=== PATIENT | female | born 1985 | race Caucasian/White ===

== ENCOUNTER 2017-01-27 14:47 | Emergency (ER) | payer OTHER | END 2017-01-27 15:12 | disposition home or self-care (01) | DX: L30.9 Dermatitis, unspecified (principal); E03.9 Hypothyroidism, unspecified ==

== ENCOUNTER 2017-04-13 08:54 | Emergency (ER) | payer OTHER ==
--- NOTE | 2017-04-13 09:57 | ED Physician Documentation ---
History of Present Illness - Stated complaint Stated Complaint: CONSTIPATION/DIZZY - Chief complaint Chief Complaint: Abd Pain - History obtained from History obtained from: Patient - History of Present Illness Timing: How many weeks ago (4) - Additonal information Additional information: 31 y/o female with thyroid disease has developed mucousy diarrhea about one month ago and subsequently has developed some constipation. Her last normal BM was about 5 days ago and she has some nausea today. She relates that she feels her initial episode of diarrhea was stress related and she has had this happen to her once before when she was buying a house with her . Her stress this time is her coming home from deployment and she is fearful she will not be attractive to him as she has not lost all of her weight from her most recent . She does acknowledge that this is a body image issue as she is not overweight. She has had some trouble sleeping. She has not taken medication previously for anxiety Review of Systems Constitutional: denies: Fever Eyes: denies: Decreased vision Ears: denies: Ear pain Nose: denies: Congestion Throat: denies: Sore throat Cardiac: denies: Chest pain / pressure Respiratory: denies: Dyspnea, Cough GI: reports: Abdominal Pain, Nausea, Constipation. 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 - Past Surgical History Past Surgical History: No - Present Medications Home Medications: Ambulatory Orders Medication Instructions Recorded Confirmed Levothyroxine Sodium 125 mcg PO DAILY 05/03/14 04/13/17 Lorazepam [Ativan] 1 mg PO Q8HR PRN #15 tablet 04/13/17 Polyethylene Glycol 3350 [Miralax] 17 gm PO DAILY 04/13/17 04/13/17 - Allergies Allergies/Adverse Reactions: Allergies Allergy/AdvReac Type Severity Reaction Status Date / Time cefaclor [From Ceclor] AdvReac Intermediate Rash Verified 11/14/16 11:20 Penicillins AdvReac Intermediate Rash Verified 11/14/16 11:20 - Social History Does the pt smoke?: No Smoking Status: Never smoker Does the pt drink ETOH?: No Does the pt have substance abuse?: No - Immunizations Immunizations are current?: Yes - POLST Patient has POLST: No PD ED PE NORMAL - Vitals Vital signs reviewed: Yes (normal ) - General General: Alert and oriented X 3, No acute distress, Well developed/nourished - HEENT HEENT: Atraumatic, PERRL, EOMI - Neck Neck: Supple, no meningeal sign - Cardiac Cardiac: RRR, No murmur - Respiratory Respiratory: No respiratory distress, Clear bilaterally - Abdomen Abdomen: Soft, Non tender - Back Back: No CVA TTP, No spinal TTP - Derm Derm: Normal color, No rash - Extremities Extremities: No deformity, No edema - Neuro Neuro: No motor deficit, No sensory deficit - Psych Psych: Normal mood, Normal affect Results - Vitals Vitals: Vital Signs - 24 hr 04/13/17 08:58 Temperature 36.0 C L Heart Rate 66 Respiratory 15 Rate Blood Pressure 121/78 O2 Saturation 100 Oxygen O2 Source Room air - Labs Labs: Laboratory Tests 04/13/17 04/13/17 04/13/17 10:16 10:16 10:16 WBC 6.5 RBC 4.52 Hgb 14.3 Hct 40.4 MCV 89.4 MCH 31.7 H MCHC 35.5 RDW 11.6 L Plt Count 216 MPV 7.7 L Neut # 5.0 Lymph # 1.2 L [place] # 0.3 Eos # 0.0 Baso # 0.0 Absolute Nucleated RBC 0.00 Nucleated RBCs 0.0 Sodium 138 Potassium 4.5 Chloride 105 Carbon Dioxide 27 Anion Gap 6.0 BUN 14 Creatinine 0.6 Estimated GFR (MDRD) 117 Glucose 105 H Calcium 9.3 Total Bilirubin 1.5 H AST 25 ALT 23 Alkaline Phosphatase 44 Total Protein 8.1 Albumin 5.0 Globulin 3.1 Albumin/Globulin Ratio 1.6 Lipase 27 Urine Color YELLOW Urine Clarity CLEAR Urine pH 5.5 Ur Specific [place] <=1.005 Urine Protein NEGATIVE Urine Glucose (UA) NEGATIVE Urine Ketones NEGATIVE Urine Occult Blood NEGATIVE Urine Nitrite NEGATIVE Urine Bilirubin NEGATIVE Urine Urobilinogen 0.2 (NORMAL) Ur Leukocyte Esterase NEGATIVE Ur Microscopic Review NOT INDICATED Urine Culture Comments NOT INDICATED Urine HCG, Qual NEGATIVE Procedures - IVC sono (time) 0950 Bedside IVC sono: IVC measures (cm) (1.72), Euvolemia PD MEDICAL DECISION MAKING - ED course Complexity details: reviewed results, re-evaluated patient, considered differential, d/w patient ED course: 31 y/o female with constipation after a bout of mucousy diarrhea has some stress and anxiety. She has no family history of IBD. Departure - Departure Disposition: 01 Home, Self Care Clinical Impression: Stress reaction Constipation Qualifiers: Constipation type: slow transit constipation Qualified Code(s): K59.01 - Slow transit constipation Condition: Stable Instructions: ED Stress React, ED Constipation Follow-Up: Mike Castañeda MD [Primary Care Provider] - Prescriptions: Lorazepam [Ativan] 1 mg PO Q8HR PRN #15 tablet PRN Reason: Anxiety
[2017-04-13 10:23] LABS: BASOPHILS % (AUTO) 0.4 %; EOSINOPHILS % (AUTO) 0.5 %; HCT - HEMATOCRIT 40.4 % (37.0-47.0); HGB - HEMOGLOBIN 14.3 g/dL (12.0-16.0); LYMPHOCYTES # (AUTO) 1.2 10^3/uL (1.5-3.5); LYMPHOCYTES % (AUTO) 18.1 %; MEAN CORPUSCULAR HEMOGLOBIN 31.7 pg (27.0-31.0); MEAN CORPUSCULAR HGB CONC 35.5 g/dL (32.0-36.0); MEAN CORPUSCULAR VOLUME 89.4 fL (81.0-99.0); MEAN PLATELET VOLUME 7.7 fL (7.9-10.8); MONOCYTES # (AUTO) 0.3 10^3/uL (0.0-1.0); MONOCYTES % (AUTO) 4.8 %; NEUTROPHILS % (AUTO) 76.2 %; RED BLOOD COUNT 4.52 10^6/uL (4.20-5.40); RED CELL DISTRIBUTION WIDTH 11.6 % (12.0-15.0); UNCORRECTED WHITE BLOOD COUNT 6.5 x10^3/uL; WHITE BLOOD COUNT 6.5 x10^3/uL (4.8-10.8)
[2017-04-13 10:26] LABS: BILIRUBIN,URINE NEGATIVE (NEGATIVE); PH,URINE 5.5 PH (5.0-7.5)
[2017-04-13 10:29] LABS: HCG UR QUAL NEGATIVE; UA CHARGE (STRIP ONLY) YES; UR CULTURE IF IND NOT INDICATED
[2017-04-13 10:41] LABS: ALBUMIN/GLOBULIN RATIO 1.6 (1.0-2.2); BILIRUBIN,TOTAL 1.5 mg/dL (0.2-1.0); CALCIUM 9.3 mg/dL (8.5-10.3); CREATININE 0.6 mg/dL (0.4-1.0); POTASSIUM 4.5 mmol/L (3.5-5.0); TOTAL PROTEIN 8.1 g/dL (6.7-8.2)
[2017-04-13 11:01] VITALS: BP 108/61
== END 2017-04-13 11:01 | disposition home or self-care (01) ==
LOC: ED 08:54
DX: F43.9 Reaction to severe stress, unspecified (principal); K59.01 Slow transit constipation; E03.9 Hypothyroidism, unspecified
CPT/HCPCS: 36415; 80053; 81001; 81003; 81025; 83690; 85025; 87086; 99283

== ENCOUNTER 2017-06-10 16:44 | Emergency (ER) | payer OTHER ==
[2017-06-10 16:57] VITALS: BP 120/81
[2017-06-10 17:56] LABS: RAPID STREP SCREEN REAGENT QC YELLOW (YELLOW)
[2017-06-10] MEDS ORDERED: ERYTHROMYCIN OPHTH OINT 1 GM TUBE RIGHTEYE STA (18:01)
[2017-06-10] MEDS ORDERED: LORATADINE 10 MG TABLET ONE (18:03)
--- NOTE | 2017-06-10 18:04 | ED Physician Documentation ---
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 Other Past Medical History: strep throat many times - Past Surgical History Past Surgical History: No - Present Medications Home Medications: Ambulatory Orders Medication Instructions Recorded Confirmed Levothyroxine Sodium 125 mcg PO DAILY 05/03/14 06/10/17 - Allergies Allergies/Adverse Reactions: Allergies Allergy/AdvReac Type Severity Reaction Status Date / Time cefaclor [[facility] AdvReac Intermediate Rash Verified 11/14/16 11:20 Penicillins AdvReac Intermediate Rash Verified 11/14/16 11:20 - Social History Does the pt smoke?: No Smoking Status: Never smoker Does the pt drink ETOH?: No Does the pt have substance abuse?: No - Immunizations Immunizations are current?: Yes - POLST Patient has POLST: No PD ED PE NORMAL - Vitals Vital signs reviewed: Yes - HEENT HEENT: Other (R eye mild injection no FB, pharynx with erythema no exudate) - Cardiac Cardiac: RRR - Respiratory Respiratory: No respiratory distress, Clear bilaterally - Abdomen Abdomen: Non tender - Derm Derm: Normal color - Neuro Neuro: Alert and oriented X 3 Results - Vitals Vitals: Vital Signs - 24 hr 06/10/17 16:54 Temperature 36.8 C Heart Rate 86 Respiratory 18 Rate Blood Pressure 120/81 H O2 Saturation 100 Oxygen O2 Source Room air - Labs Labs: Laboratory Tests 06/10/17 17:10 Group A Strep Rapid Negative Departure - Departure Disposition: 01 Home, Self Care Condition: Good Instructions: ED Pharyngitis Viral, ED Conjunctivitis Nonspecific Follow-Up: Mike Castañeda MD [Primary Care Provider] - Comments: The rapid strep test was negative A formal throat culture will also be run and we will call you if it is positive and you need antibiotics For your eye I have prescribed ointment to be applied 4 X a day for a week Forms: Activity restrictions
[2017-06-10] MEDS ORDERED: ERYTHROMYCIN OPHTH OINT 1 GM TUBE ONE (18:06)
== END 2017-06-10 18:09 | disposition home or self-care (01) ==
LOC: ED 16:44
DX: J02.8 Acute pharyngitis due to other specified organisms (principal); B97.89 Other viral agents as the cause of diseases classified elsewhere; H10.9 Unspecified conjunctivitis
CPT/HCPCS: 87070; 87430; 99283; A9270; J3490

== ENCOUNTER 2017-11-30 17:13 | Emergency (ER) | payer OTHER ==
[2017-11-30 17:33] VITALS: BP 111/72
[2017-11-30 18:12] LABS: BILIRUBIN,URINE NEGATIVE (NEGATIVE); GLUCOSE, URINE (UA) NEGATIVE (NEGATIVE); KETONES,URINE (UA) NEGATIVE (NEGATIVE); LEUKOCYTE ESTERASE, URINE NEGATIVE (NEGATIVE); NITRITE,URINE NEGATIVE (NEGATIVE); OCCULT BLOOD,URINE NEGATIVE (NEGATIVE); PH,URINE 6.5 PH (5.0-7.5); PROTEIN,URINE NEGATIVE (NEGATIVE); UROBILINOGEN,URINE 0.2 (NORMAL) E.U./dL (NORMAL)
[2017-11-30 18:17] LABS: CLARITY,URINE CLEAR (CLEAR); HCG UR QUAL NEGATIVE
[2017-11-30] MEDS ORDERED: PHENAZOPYRIDINE 100 MG TABLET PO STA (18:27)
--- NOTE | 2017-11-30 18:44 | ED Physician Documentation ---
History of Present Illness - Stated complaint Stated Complaint: FEMALE - Chief complaint Chief Complaint: General - Additonal information Additional information: hx from pt 32f several days of urinary freq and now L low back pain concerned for kidney infection no fever no NVD no abd pain denies preg no vag bleed no vag dc denies concern for STDs Review of Systems Constitutional: denies: Fever, Chills Cardiac: denies: Chest pain / pressure Respiratory: denies: Dyspnea GI: denies: Abdominal Pain, Nausea, Vomiting, Diarrhea : reports: Frequency. 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 Psych: Anxiety - Past Surgical History Past Surgical History: No - Present Medications Home Medications: Ambulatory Orders Medication Instructions Recorded Confirmed Levothyroxine Sodium 150 mcg PO DAILY 05/03/14 11/30/17 - Allergies Allergies/Adverse Reactions: Allergies Allergy/AdvReac Type Severity Reaction Status Date / Time cefaclor [From Ceclor] AdvReac Intermediate Rash Verified 11/30/17 17:33 Penicillins AdvReac Intermediate Rash Verified 11/30/17 17:33 - Social History Does the pt smoke?: No Smoking Status: Never smoker Does the pt drink ETOH?: No Does the pt have substance abuse?: No - Immunizations Immunizations are current?: Yes - POLST Patient has POLST: No PD ED PE NORMAL - Vitals Vital signs reviewed: Yes - Neck Neck: Supple, no meningeal sign - Cardiac Cardiac: RRR - Respiratory Respiratory: No respiratory distress, Clear bilaterally - Abdomen Abdomen: Soft, Non tender - Back Back: No CVA TTP - Derm Derm: Normal color Results - Vitals Vitals: Vital Signs - 24 hr 11/30/17 17:28 Temperature 36.3 C L Heart Rate 73 Respiratory 18 Rate Blood Pressure 111/72 O2 Saturation 98 Oxygen O2 Source Room air - Labs Labs: Laboratory Tests 11/30/17 17:45 Urine Color YELLOW Urine Clarity CLEAR Urine pH 6.5 Ur Specific [place] 1.010 Urine Protein NEGATIVE Urine Glucose (UA) NEGATIVE Urine Ketones NEGATIVE Urine Occult Blood NEGATIVE Urine Nitrite NEGATIVE Urine Bilirubin NEGATIVE Urine Urobilinogen 0.2 (NORMAL) Ur Leukocyte Esterase NEGATIVE Ur Microscopic Review NOT INDICATED Urine Culture Comments NOT INDICATED Urine HCG, Qual NEGATIVE PD MEDICAL DECISION MAKING - ED course ED course: clean urine hcg neg added on GC and chlamydia though by pt report low risk and no vag dc etc Departure - Departure Disposition: 01 Home, Self Care Clinical Impression: Dysuria Condition: Good Instructions: ED Dysuria Uncertain Cause Follow-Up: IDALMIS RAM MD [Primary Care Provider] - Comments: The initial urine test was fine - no infection Cultures are being run and will be resulted in a few days - the ER staff will call you if antibiotics are needed For now I have prescribed a medication called pyridium to ease the urinary symptoms and you can take tylenol or motrin for the flank pain. Please follow up with your PMD for a recheck if not better in a few days Please return to the ER if worse
== END 2017-11-30 18:50 | disposition home or self-care (01) ==
LOC: ED 17:13
DX: R30.0 Dysuria (principal); E03.9 Hypothyroidism, unspecified
CPT/HCPCS: 81003; 81025; 87491; 87591; 99283; A9270; 81001; 87086

== ENCOUNTER 2018-01-25 10:54 | Emergency (ER) | payer OTHER ==
[2018-01-25 11:14] VITALS: BP 109/55
--- NOTE | 2018-01-25 12:45 | ED Physician Documentation ---
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 Psych: Anxiety - Past Surgical History Past Surgical History: No - Present Medications Home Medications: Ambulatory Orders Medication Instructions Recorded Confirmed Levothyroxine Sodium 135 mcg PO DAILY 05/03/14 01/25/18 - Allergies Allergies/Adverse Reactions: Allergies Allergy/AdvReac Type Severity Reaction Status Date / Time cefaclor [From Ceclor] AdvReac Intermediate Rash Verified 01/25/18 11:14 Penicillins AdvReac Intermediate Rash Verified 01/25/18 11:14 - Social History Does the pt smoke?: No Smoking Status: Never smoker Does the pt drink ETOH?: No Does the pt have substance abuse?: No - Immunizations Immunizations are current?: Yes - POLST Patient has POLST: No Results - Vitals Vitals: Oxygen O2 Source Room air Departure - Departure Disposition: ED Left Without Being Seen Discharge Date/Time: 01/25/18 12:51
== END 2018-01-25 12:51 | disposition left against medical advice (07) ==
LOC: ED 10:54
DX: Z53.21 Procedure and treatment not carried out due to patient leaving prior to being seen by health care provider (principal)

== ENCOUNTER 2018-04-04 08:07 | Emergency (ER) | payer OTHER ==
[2018-04-04 08:18] VITALS: BP 113/75
--- NOTE | 2018-04-04 08:33 | ED Physician Documentation ---
PD HPI BACK PAIN - Stated complaint Stated Complaint: BACK PX - Chief complaint Chief Complaint: Back Pain - History obtained from History obtained from: Patient - History of Present Illness Timing - onset: Chronic Timing - duration: Years Timing - details: Gradual onset, Waxing and waning Pain level max: 8 Pain level now: 4 Location: Lower, Right, Left Quality: Pain, Spasm, Similar to prior episodes Associated symptoms: No: Fever, Weakness, Numbness, Incontinent of urine, Unable to urinate, Hematuria, Incontinent of stool Improves with: Rest Worsened by: Movement Similar symptoms before: Diagnosis (chronic low back pain) - Additional information Additional information: Patient is a 32-year-old female who has a history of chronic low back pain. Currently seeing physical therapy and a chiropractor. States last night she had increased spasming in her back. Took Motrin without relief. Is concerned that the spasming may begin again tonight. Is still having some pain in her back today. No fevers. No IV drug use. No recurrent injury. Denies any possibility of . States she is not breast-feeding either. 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 Psych: Anxiety - Past Surgical History Past Surgical History: No - Present Medications Home Medications: Ambulatory Orders Medication Instructions Recorded Confirmed Levothyroxine Sodium 135 mcg PO DAILY 05/03/14 01/25/18 Cyclobenzaprine [Flexeril] 10 mg PO TID PRN #20 tablet 04/04/18 Hydrocodone/Acetaminophen 1 - 2 each PO Q6H PRN #14 tablet 04/04/18 [Hydrocodon-Acetaminophen 5-325] - Allergies Allergies/Adverse Reactions: Allergies Allergy/AdvReac Type Severity Reaction Status Date / Time cefaclor [From Ceclor] AdvReac Intermediate Rash Verified 01/25/18 11:14 Penicillins AdvReac Intermediate Rash Verified 01/25/18 11:14 - Social History Does the pt smoke?: No Smoking Status: Never smoker Does the pt drink ETOH?: No Does the pt have substance abuse?: No - Immunizations Immunizations are current?: Yes - POLST Patient has POLST: No PD ED PE NORMAL - Vitals Vital signs reviewed: Yes - General General: Alert and oriented X 3, No acute distress - HEENT HEENT: Moist mucous membranes - Neck Neck: Supple, no meningeal sign, No bony TTP - Cardiac Cardiac: RRR - Respiratory Respiratory: No respiratory distress, Clear bilaterally - Back Back: No spinal TTP, Other (Mild low lumbar paraspinal muscle spasm. No midline tenderness to palpation or percussion) - Derm Derm: Warm and dry, No rash - Extremities Extremities: Other (normal bilateral lower extremity patellar and ankle jerk reflexes. Normal great toe extension bilaterally) - Neuro Neuro: Alert and oriented X 3, No motor deficit, No sensory deficit Results - Vitals Vitals: Vital Signs - 24 hr 04/04/18 08:13 Temperature 36.7 C Heart Rate 72 Respiratory 18 Rate Blood Pressure 113/75 O2 Saturation 100 Oxygen O2 Source Room air PD MEDICAL DECISION MAKING - ED course Complexity details: considered differential (no cauda equina, no spinal epidural abscess, no fracture, no aortic dissection or evidence of aneursym rupture), d/w patient ED course: Patient is a 32-year-old female who presents to the emergency department with acute on chronic low back pain. We will trial her on a small amount of pain medication and muscle relaxants for home. She is driving home, therefore will not give her any altering medications in the emergency department. She will fill her prescription and follow-up closely with her doctor. No evidence of cauda equina, epidural abscess. Normal gait. Patient counseled regarding signs and symptoms for which I believe and urgent re-evaluation would be necessary. Patient with good understanding of and agreement to plan and is comfortable going home at this time This document was made in part using voice recognition software. While efforts are made to proofread this document, sound alike and grammatical errors may occur. Departure - Departure Disposition: 01 Home, Self Care Clinical Impression: Low back pain Qualifiers: Chronicity: chronic Back pain laterality: bilateral Sciatica presence: without sciatica Qualified Code(s): M54.5 - Low back pain Condition: Good Instructions: ED Spasm Back No Trauma, ED Neck Back Pain General Follow-Up: IDALMIS RAM MD [Primary Care Provider] - Within 1 week Prescriptions: Cyclobenzaprine [Flexeril] 10 mg PO TID PRN #20 tablet PRN Reason: Spasms Hydrocodone/Acetaminophen [Hydrocodon-Acetaminophen 5-325] 1 - 2 each PO Q6H PRN #14 tablet PRN Reason: pain Comments: Return if you worsen. Do not drive or operate heavy machinery while taking the Vicodin or Flexeril. Do not drink alcohol or drive while on narcotic pain medicine. Note that many narcotic pain relievers also contain tylenol/acetaminophen. Please ensure that your total dose of acetaminophen from all sources does not exceed 3 grams (3000mg) per day. You may constipated on this medication, take a stool softener such as "Colace" twice a day while you are on it. Also recommend a deoc-tad-fzotzav laxative such as senna or MiraLAX any day that you do not have a bowel movement. If you received narcotic pain medication in the emergency department, do not drive or operate machinery for the next 24 hours. Discharge Date/Time: 04/04/18 08:43
== END 2018-04-04 08:43 | disposition home or self-care (01) ==
LOC: ED 08:07
DX: M54.5 Low back pain (principal); G89.29 Other chronic pain; E03.9 Hypothyroidism, unspecified
CPT/HCPCS: 99283

== ENCOUNTER 2018-05-01 09:51 | Emergency (ER) | payer OTHER ==
[2018-05-01] MEDS ORDERED: LIDOCAINE TOPICAL 4% 50 ML BOTTLE MM STA (11:29)
--- NOTE | 2018-05-01 11:30 | ED Physician Documentation ---
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: No Smoking Status: Never smoker Does the pt drink ETOH?: No Does the pt have substance abuse?: No - Immunizations Immunizations are current?: Yes - POLST Patient has POLST: No PD ED PE NORMAL - Vitals Vital signs reviewed: Yes - HEENT HEENT: Other (mikayla TMs tautly retracted, prior perfs appear healed, no erythema or purulence) - Cardiac Cardiac: RRR - Respiratory Respiratory: No respiratory distress, Clear bilaterally Results - Vitals Vitals: Vital Signs - 24 hr 05/01/18 09:55 Temperature 36.5 C Heart Rate 74 Respiratory 16 Rate Blood Pressure 112/59 L O2 Saturation 100 Oxygen O2 Source Room air PD MEDICAL DECISION MAKING - ED course ED course: atrovent nasal spray cat B so used that rather than afrin or flonase - Sepsis Event Vital Signs: Vital Signs - 24 hr 05/01/18 09:55 Temperature 36.5 C Heart Rate 74 Respiratory 16 Rate Blood Pressure 112/59 L O2 Saturation 100 Oxygen O2 Source Room air Departure - Departure Disposition: 01 Home, Self Care Clinical Impression: Eustachian tube disorder Qualifiers: Laterality: left Qualified Code(s): H69.92 - Unspecified Eustachian tube disorder, left ear Condition: Good Instructions: ED Otitis Media Serous Adult Follow-Up: IDALMIS RAM MD [Primary Care Provider] - Prescriptions: Ipratropium [place] 2 sprays NS TID PRN #1 bottle PRN Reason: ear pain
[2018-05-01 11:44] VITALS: BP 91/49
== END 2018-05-01 11:47 | disposition home or self-care (01) ==
LOC: ED 09:51
DX: H69.92 Unspecified Eustachian tube disorder, left ear (principal); E03.9 Hypothyroidism, unspecified
CPT/HCPCS: 99283

== ENCOUNTER 2018-05-29 14:11 | Emergency (ER) | payer OTHER ==
[2018-05-29 14:21] VITALS: BP 109/59
[2018-05-29 14:57] LABS: BILIRUBIN,URINE NEGATIVE (NEGATIVE); GLUCOSE, URINE (UA) NEGATIVE (NEGATIVE); KETONES,URINE (UA) NEGATIVE (NEGATIVE); LEUKOCYTE ESTERASE, URINE NEGATIVE (NEGATIVE); NITRITE,URINE NEGATIVE (NEGATIVE); OCCULT BLOOD,URINE NEGATIVE (NEGATIVE); PH,URINE 6.5 PH (5.0-7.5); PROTEIN,URINE NEGATIVE (NEGATIVE); UROBILINOGEN,URINE 0.2 (NORMAL) E.U./dL (NORMAL)
[2018-05-29 14:59] LABS: CLARITY,URINE CLEAR (CLEAR); HCG UR QUAL POSITIVE
--- NOTE | 2018-05-29 15:15 | ED Physician Documentation ---
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 Psych: Anxiety - Past Surgical History Past Surgical History: No - Present Medications Home Medications: Ambulatory Orders Medication Instructions Recorded Confirmed Levothyroxine Sodium 135 mcg PO DAILY 05/03/14 05/01/18 Ipratropium [place] 2 sprays NS TID PRN #1 bottle 05/01/18 - Allergies Allergies/Adverse Reactions: Allergies Allergy/AdvReac Type Severity Reaction Status Date / Time cefaclor [[facility] AdvReac Intermediate Rash Verified 05/01/18 10:13 Penicillins AdvReac Intermediate Rash Verified 05/01/18 10:13 - Social History Does the pt smoke?: No Smoking Status: Never smoker Does the pt drink ETOH?: No Does the pt have substance abuse?: No - Immunizations Immunizations are current?: Yes - POLST Patient has POLST: No Results - Vitals Vitals: Vital Signs - 24 hr 05/29/18 14:15 Temperature 36.6 C Heart Rate 69 Respiratory 16 Rate Blood Pressure 109/59 L O2 Saturation 100 Oxygen O2 Source Room air - Labs Labs: Laboratory Tests 05/29/18 05/29/18 14:30 14:30 Urine Color YELLOW Urine Clarity CLEAR Urine pH 6.5 Ur Specific [place] 1.020 1.020 Urine Protein NEGATIVE Urine Glucose (UA) NEGATIVE Urine Ketones NEGATIVE Urine Occult Blood NEGATIVE Urine Nitrite NEGATIVE Urine Bilirubin NEGATIVE Urine Urobilinogen 0.2 (NORMAL) Ur Leukocyte Esterase NEGATIVE Ur Microscopic Review NOT INDICATED Urine Culture Comments NOT INDICATED Urine HCG, Qual POSITIVE PD MEDICAL DECISION MAKING - Sepsis Event Vital Signs: Vital Signs - 24 hr 05/29/18 14:15 Temperature 36.6 C Heart Rate 69 Respiratory 16 Rate Blood Pressure 109/59 L O2 Saturation 100 Oxygen O2 Source Room air
--- NOTE | 2018-05-29 15:26 | ED Physician Documentation ---
PD HPI FEMALE - Stated complaint Stated Complaint: FEMALE /15 WKS PREG - Chief complaint Chief Complaint: UTI - History obtained from History obtained from: Patient - History of Present Illness Timing - onset: Other ( at 15 weeks has been having significant urinary frequency more than her prior pregnancies, and over the last 3 days has had constant burning pelvic pain unrelated to urination. There is no cramping or bleeding or discharge.) Review of Systems Constitutional: denies: Fever, Chills GI: denies: Abdominal Pain : reports: Dysuria, Frequency. 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 Psych: Anxiety - Past Surgical History Past Surgical History: No - Present Medications Home Medications: Ambulatory Orders Medication Instructions Recorded Confirmed Levothyroxine Sodium 135 mcg PO DAILY 05/03/14 05/01/18 Ipratropium [place] 2 sprays NS TID PRN #1 bottle 05/01/18 - Allergies Allergies/Adverse Reactions: Allergies Allergy/AdvReac Type Severity Reaction Status Date / Time cefaclor [From [facility]] AdvReac Intermediate Rash Verified 05/01/18 10:13 Penicillins AdvReac Intermediate Rash Verified 05/01/18 10:13 - Social History Does the pt smoke?: No Smoking Status: Never smoker Does the pt drink ETOH?: No Does the pt have substance abuse?: No - Immunizations Immunizations are current?: Yes - POLST Patient has POLST: No PD ED PE NORMAL - Vitals Vital signs reviewed: Yes - General General: Alert and oriented X 3, No acute distress - Abdomen Abdomen: Normal bowel sounds, Soft, Non tender - Female Female : Other (Bedside ultrasound demonstrates single live intrauterine with a heart rate 133 and no free fluid. Bladder is not distended.) - Extremities Extremities: No edema, No calf tenderness / cord - Neuro Neuro: Alert and oriented X 3, Normal speech Results - Vitals Vitals: Vital Signs - 24 hr 05/29/18 14:15 Temperature 36.6 C Heart Rate 69 Respiratory 16 Rate Blood Pressure 109/59 L O2 Saturation 100 Oxygen O2 Source Room air - Labs Labs: Laboratory Tests 05/29/18 05/29/18 14:30 14:30 Urine Color YELLOW Urine Clarity CLEAR Urine pH 6.5 Ur Specific [place] 1.020 1.020 Urine Protein NEGATIVE Urine Glucose (UA) NEGATIVE Urine Ketones NEGATIVE Urine Occult Blood NEGATIVE Urine Nitrite NEGATIVE Urine Bilirubin NEGATIVE Urine Urobilinogen 0.2 (NORMAL) Ur Leukocyte Esterase NEGATIVE Ur Microscopic Review NOT INDICATED Urine Culture Comments NOT INDICATED Urine HCG, Qual POSITIVE PD MEDICAL DECISION MAKING - ED course ED course: 32-year-old woman presents with urinary frequency and pelvic burning, she has benign examination and normal urine - Sepsis Event Vital Signs: Vital Signs - 24 hr 05/29/18 14:15 Temperature 36.6 C Heart Rate 69 Respiratory 16 Rate Blood Pressure 109/59 L O2 Saturation 100 Oxygen O2 Source Room air Departure - Departure Disposition: Home, Self Care Clinical Impression: Urinary frequency Qualifiers: Weeks of gestation: 15 weeks Qualified Code(s): Z3A.15 - 15 weeks gestation of Condition: Good Record reviewed to determine appropriate education?: Yes Instructions: ED Preg Established Normal Sxs Comments: Call your doctor to arrange a follow-up appointment, make the next available appointment. In the interim, return anytime if worse or if new symptoms develop. Discharge Date/Time: 05/29/18 15:46
== END 2018-05-29 15:46 | disposition home or self-care (01) ==
LOC: ED 14:11
DX: O99.89 Other specified diseases and conditions complicating pregnancy, childbirth and the puerperium (principal); R35.0 Frequency of micturition; R30.0 Dysuria; R10.2 Pelvic and perineal pain; Z3A.15 15 weeks gestation of pregnancy
CPT/HCPCS: 81001; 81003; 81025; 87086; 99282; 99283

== ENCOUNTER 2018-09-19 06:46 | Emergency (ER) | payer OTHER ==
[2018-09-19 06:51] VITALS: BP 113/70
--- NOTE | 2018-09-19 07:34 | ED Physician Documentation ---
PD HPI HEENT - Stated complaint Stated Complaint: SINUS PRESSURE - Chief complaint Chief Complaint: Heent - History obtained from History obtained from: Patient - History of Present Illness Timing - onset: Other (10 day s ago) Timing - duration: Days (10 days) Timing - details: Gradual onset, Still present Severity Comments: moderate Location: Sinuses Improves: Nothing Worsens: No: Swalllowing, Noise, Position Associated symptoms: Congestion, Facial swelling, Headache. No: Unable to swallow Similar symptoms before: No diagnosis Recently seen: Not recently seen Review of Systems Constitutional: denies: Fever, Chills Eyes: denies: Discharge Ears: denies: Ear pain Nose: reports: Rhinorrhea / runny nose, Congestion, Sinus pressure / pain. denies: Epistaxis Throat: denies: Sore throat Respiratory: reports: Cough. 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 Psych: Anxiety - Past Surgical History Past Surgical History: No - Present Medications Home Medications: Ambulatory Orders Medication Instructions Recorded Confirmed Levothyroxine Sodium 135 mcg PO DAILY 05/03/14 05/01/18 Ipratropium [place] 2 sprays NS TID PRN #1 bottle 05/01/18 Cefixime [Suprax] 400 mg PO DAILY 7 Days capsule 09/19/18 - Allergies Allergies/Adverse Reactions: Allergies Allergy/AdvReac Type Severity Reaction Status Date / Time cefaclor [From Ceclor] AdvReac Intermediate Rash Verified 09/19/18 06:52 Penicillins AdvReac Intermediate Rash Verified 09/19/18 06:52 - Social History Does the pt smoke?: No Smoking Status: Never smoker Does the pt drink ETOH?: No Does the pt have substance abuse?: No - Immunizations Immunizations are current?: Yes - POLST Patient has POLST: No PD ED PE NORMAL - General General: Alert and oriented X 3, No acute distress - HEENT HEENT: Atraumatic - Cardiac Cardiac: RRR, Strong equal pulses - Respiratory Respiratory: No respiratory distress, Clear bilaterally - Derm Derm: Normal color - Extremities Extremities: No deformity - Neuro Neuro: Alert and oriented X 3, Normal speech - Psych Psych: Normal mood Results - Vitals Vitals: Vital Signs - 24 hr 09/19/18 06:48 Temperature 36.5 C Heart Rate 84 Respiratory 18 Rate Blood Pressure 113/70 O2 Saturation 99 Oxygen O2 Source Room air PD MEDICAL DECISION MAKING - ED course ED course: The patient's symptoms have been ongoing for 10 days and progressively worsening. The patient's symptoms are consistent with acute sinusitis, given the duration of symptoms the patient will be started on empiric antibiotic therapy. The patient has a penicillin allergy, a third generation cephalosporin will be used in place of penicillin. The findings and plan were discussed the patient understands and agrees. I discussed warning signs and recommended returning to the emergency department immediately for worsening or any concerns. Departure - Departure Disposition: 01 Home, Self Care Clinical Impression: Acute sinusitis Qualifiers: Sinusitis location: unspecified location Recurrence: non-recurrent Qualified Code(s): J01.90 - Acute sinusitis, unspecified Condition: Good Instructions: ED Sinusitis Abx Tx Follow-Up: IDALMIS RAM MD [Primary Care Provider] - Within 1 week Prescriptions: Cefixime [Suprax] 400 mg PO DAILY 7 Days capsule Comments: Please return to the emergency department for worsening symptoms or any concerns
== END 2018-09-19 07:38 | disposition home or self-care (01) ==
LOC: ED 06:46
DX: J01.90 Acute sinusitis, unspecified (principal); E03.9 Hypothyroidism, unspecified
CPT/HCPCS: 99283

== ENCOUNTER 2018-11-05 11:48 | Emergency (ER) | payer OTHER ==
[2018-11-05 12:21] VITALS: BP 125/68
--- NOTE | 2018-11-05 14:09 | ED Physician Documentation ---
PD HPI HEENT - Stated complaint Stated Complaint: LEFT EAR PX/36WKS PREG - Chief complaint Chief Complaint: Heent - History obtained from History obtained from: Patient - History of Present Illness Timing - onset: How many days ago (4) Timing - details: Still present Location: Left ear Similar symptoms before: Diagnosis (History of previous ear infections, with tympanic rupture.) - Additional information Additional information: The patient is a 33-year-old female who presents with left earache that started 4 days ago. She reports fever to 101.2 2 days ago. She has had mild headache that improves with Tylenol. She reports mild nausea, without vomiting. Her past medical history is significant for recurrent otitis media with rupture of her tympanic membranes. She is currently at 36 weeks gestation. Review of Systems Constitutional: reports: Fever Eyes: denies: Irritation Ears: reports: Ear pain (left ear.) Nose: denies: Congestion Throat: denies: Sore throat Cardiac: denies: Chest pain / pressure Respiratory: denies: Dyspnea, Cough GI: reports: Nausea. denies: Abdominal Pain, Vomiting : reports: Now EGA (36 weeks gestation.). 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 Psych: Anxiety - Past Surgical History Past Surgical History: No - Present Medications Home Medications: Ambulatory Orders Medication Instructions Recorded Confirmed Levothyroxine Sodium 135 mcg PO DAILY 05/03/14 05/01/18 Cefixime [Suprax] 400 mg PO BID #10 capsule 11/05/18 [id number]/FA/Omega3/Dha/Fish Oil 11/05/18 11/05/18 [ Gummies] - Allergies Allergies/Adverse Reactions: Allergies Allergy/AdvReac Type Severity Reaction Status Date / Time cefaclor [From Ceclor] AdvReac Intermediate Rash Verified 11/05/18 12:21 Penicillins AdvReac Intermediate Rash Verified 11/05/18 12:21 - Social History Does the pt smoke?: No Smoking Status: Never smoker Does the pt drink ETOH?: No Does the pt have substance abuse?: No - Immunizations Immunizations are current?: Yes - POLST Patient has POLST: No PD ED PE NORMAL - Vitals Vital signs reviewed: Yes (normal) - General General: Alert and oriented X 3, Well developed/nourished - HEENT HEENT: Atraumatic, EOMI, Pharynx benign, Other (Left tympanic membrane is erythematous and bulging. There is tympanic scarring noted, most likely from previous rupture. Right tympanic membrane is clear. There is no gross loss of hearing identified.) - Neck Neck: Supple, no meningeal sign, No adenopathy - Cardiac Cardiac: RRR - Respiratory Respiratory: No respiratory distress, Clear bilaterally - Abdomen Abdomen: Non tender, Other (Gravid uterus, consistent with dates.) - Back Back: No CVA TTP - Derm Derm: No rash - Extremities Extremities: No edema, No calf tenderness / cord - Neuro Neuro: Alert and oriented X 3, No motor deficit, Normal speech Results - Vitals Vitals: Oxygen O2 Source Room air PD MEDICAL DECISION MAKING - ED course Complexity details: considered differential, d/w patient ED course: The patient's presentation is consistent with acute left otitis media. Her presentation does not suggest meningitis, peritonsillar abscess, or pharyngitis. She is being discharged with prescription for Suprax. Despite a reported allergy to cefaclor and penicillin, the patient states that she has taken Suprax in the past without any allergic reaction. I discussed with her the expected course of illness, antibiotic treatment and outpatient follow-up, as well as potentially worrisome signs or symptoms that should prompt reevaluation in the emergency department. Departure - Departure Disposition: 01 Home, Self Care Clinical Impression: Left otitis media Qualifiers: Otitis media type: unspecified Qualified Code(s): H66.92 - Otitis media, unspecified, left ear Qualifiers: Weeks of gestation: 36 weeks Qualified Code(s): Z3A.36 - 36 weeks gestation of Condition: Stable Instructions: ED Otitis Media Acute Adult Follow-Up: IDALMIS RAM MD [Primary Care Provider] - Prescriptions: Cefixime [Suprax] 400 mg PO BID #10 capsule Comments: Take Suprax twice daily as prescribed. You can use Tylenol if needed for fever or discomfort. Follow-up with your primary physician within 2 weeks. Call to schedule appointment. Return to the emerge department if you develop increasing pain or fever, persistent vomiting, or otherwise worsening symptoms. Discharge Date/Time: 11/05/18 14:16
== END 2018-11-05 14:16 | disposition home or self-care (01) ==
LOC: ED 11:48
DX: O26.893 Other specified pregnancy related conditions, third trimester (principal); Z3A.36 36 weeks gestation of pregnancy; H66.92 Otitis media, unspecified, left ear; E03.9 Hypothyroidism, unspecified
CPT/HCPCS: 99283

== ENCOUNTER 2018-12-01 07:52 | Emergency (ER) | payer OTHER ==
[2018-12-01 07:57] VITALS: BP 120/67
--- NOTE | 2018-12-01 08:39 | ED Physician Documentation ---
PD HPI HEENT - Stated complaint Stated Complaint: EAR PX - Chief complaint Chief Complaint: Heent - Additional information Additional information: 33-year-old female presents the emergency department with complaints of right ear pressure which has been ongoing. The patient is actually scheduled to see ENT soon to further evaluate the ongoing pain in her ears. The patient denies fevers or chills. The patient is status post a uncomplicated vaginal delivery and uncomplicated . The patient denies dental pain, throat pain, facial swelling, sinus pain or acute URI symptoms. Symptoms are described as mild. No other associated symptoms. No relieving factors. No triggering factors. Review of Systems Constitutional: denies: Fever Eyes: denies: Discharge Ears: reports: Ear pain Nose: reports: Congestion. 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 : None HEENT: None Psych: Anxiety Musculoskeletal: None Derm: None - Past Surgical History Past Surgical History: No - Present Medications Home Medications: Ambulatory Orders Medication Instructions Recorded Confirmed Levothyroxine Sodium 135 mcg PO DAILY 05/03/14 12/01/18 [id number]/FA/Omega3/Dha/Fish Oil 11/05/18 11/05/18 [ Gummies] Ibuprofen 400 mg PO 12/01/18 - Allergies Allergies/Adverse Reactions: Allergies Allergy/AdvReac Type Severity Reaction Status Date / Time cefaclor [From [facility] [place]] AdvReac Intermediate Rash Verified 12/01/18 07:57 Penicillins AdvReac Intermediate Rash Verified 12/01/18 07:57 - Social History Does the pt smoke?: No Smoking Status: Never smoker Does the pt drink ETOH?: No Does the pt have substance abuse?: No - Immunizations Immunizations are current?: Yes - POLST Patient has POLST: No PD ED PE NORMAL - General General: Alert and oriented X 3, No acute distress - HEENT HEENT: Atraumatic, PERRL, EOMI - Neck Neck: Supple, no meningeal sign - Cardiac Cardiac: RRR, Strong equal pulses - Respiratory Respiratory: No respiratory distress, Clear bilaterally - Derm Derm: Normal color - Extremities Extremities: No deformity - Neuro Neuro: Alert and oriented X 3, Normal speech PD ED PE EXPANDED - HEENT HEENT: Other (Both middle ears have what appears to be chronic fluid, there is no signs of an acute otitis media or acute otitis externa or mastoiditis). No: R TM red, R TM dull, R TM bulging, R TM retracted, R TM loss of landmarks, L TM red, L TM dull, L TM bulging, L TM retracted, L TM loss of landmarks Results - Vitals Vitals: Vital Signs - 24 hr 12/01/18 07:53 Temperature 36.3 C L Heart Rate 60 Respiratory 16 Rate Blood Pressure 120/67 O2 Saturation 100 Oxygen O2 Source Room air PD MEDICAL DECISION MAKING - ED course ED course: No findings on the physical exam to suggest an acute bacterial infection, the patient does have chronic fluid in her ears bilaterally. Presently the patient appears appropriate for discharge from the emergency department and follow-up with ENT as scheduled. I discussed warning signs and recommended returning for any worsening or any concerns. Departure - Departure Disposition: 01 Home, Self Care Clinical Impression: Ear pain, right Condition: Good Instructions: Middle Ear Common Probs Follow-Up: IDALMIS RAM MD [Primary Care Provider] - As Needed (Please ask your primary care about the referral to ENT for your ongoing ear pain) Comments: Please return to the emergency department for worsening symptoms or any concerns.
== END 2018-12-01 08:43 | disposition home or self-care (01) ==
LOC: ED 07:52
DX: H92.01 Otalgia, right ear (principal); E03.9 Hypothyroidism, unspecified
CPT/HCPCS: 99282

== ENCOUNTER 2019-03-12 09:45 | Emergency (ER) | payer OTHER ==
[2019-03-12 09:55] VITALS: BP 119/77
[2019-03-12] MEDS ORDERED: DEXAMETHASONE 10 MG/ML VIAL PO STA (11:17)
[2019-03-12] MEDS ORDERED: CHERRY SYRUP 10 ML UDC PO ONE (11:17)
--- NOTE | 2019-03-12 11:18 | ED Physician Documentation ---
PD HPI HEENT - Stated complaint Stated Complaint: NASAL PX - Chief complaint Chief Complaint: Heent - History obtained from History obtained from: Patient - History of Present Illness Timing - onset: How many weeks ago (3) Timing - duration: Weeks (3) Timing - details: Gradual onset, Still present Location: Sinuses, Nose Improves: Medication Worsens: Swalllowing Associated symptoms: Congestion, Rhinorrhea, Headache, Cough Similar symptoms before: Diagnosis (otitis and sinusitis.) Recently seen: Not recently seen Review of Systems Constitutional: reports: Fever Eyes: denies: Decreased vision Ears: reports: Ear pain Nose: reports: Rhinorrhea / runny nose, Congestion, Sinus pressure / pain Throat: reports: Sore throat Cardiac: denies: Chest pain / pressure, Palpitations Respiratory: reports: Cough. 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 : None HEENT: None Psych: Anxiety Musculoskeletal: None Derm: None - Past Surgical History Past Surgical History: No - Present Medications Home Medications: Ambulatory Orders Medication Instructions Recorded Confirmed Levothyroxine Sodium 135 mcg PO DAILY 05/03/14 03/12/19 [id number]/FA/Omega3/Dha/Fish Oil 0 mg PO DAILY 11/05/18 03/12/19 [ Gummies] Ibuprofen 400 mg PO TID 12/01/18 03/12/19 Acetaminophen [Tylenol] 325 mg PO BID 03/12/19 03/12/19 Cefdinir 300 mg PO BID #20 capsule 03/12/19 - Allergies Allergies/Adverse Reactions: Allergies Allergy/AdvReac Type Severity Reaction Status Date / Time cefaclor [From Ceclor] AdvReac Intermediate Rash Verified 03/12/19 09:55 Penicillins AdvReac Intermediate Rash Verified 03/12/19 09:55 - Social History Does the pt smoke?: No Smoking Status: Never smoker Does the pt drink ETOH?: No Does the pt have substance abuse?: No - Immunizations Immunizations are current?: Yes - POLST Patient has POLST: No PD ED PE NORMAL - Vitals Vital signs reviewed: Yes (normal ) - General General: Alert and oriented X 3, No acute distress, Well developed/nourished - HEENT HEENT: Atraumatic, PERRL, EOMI, Pharynx benign, Other (left TM is inflamed with distortion of the landmarks. The right is minimally inflamed and there is significant tympanosclerosis) - Neck Neck: Supple, no meningeal sign, No bony TTP - Cardiac Cardiac: RRR, No murmur - Respiratory Respiratory: No respiratory distress, Clear bilaterally - Abdomen Abdomen: Soft, Non tender - Back Back: No CVA TTP, No spinal TTP - Derm Derm: Normal color, Warm and dry, No rash - Extremities Extremities: No deformity, No edema - Neuro Neuro: Alert and oriented X 3, ore buyer 2-12 intact, No motor deficit, No sensory deficit, Normal speech Eye Opening: Spontaneous Motor: Obeys Commands Verbal: Oriented GCS Score: 15 - Psych Psych: Normal mood, Normal affect Results - Vitals Vitals: Vital Signs - 24 hr 03/12/19 09:53 Temperature 36.3 C L Heart Rate 77 Respiratory 16 Rate Blood Pressure 119/77 O2 Saturation 100 Oxygen O2 Source Room air PD MEDICAL DECISION MAKING - ED course Complexity details: reviewed old records, considered differential, d/w patient ED course: 33 y/o female with a history of multiple ENT infections with sinusitis, otitis and pharyngitis has cough and congestion with sinus point tenderness and otitis on exam. She is administered PO decadron and we will place her on some cefdinir Departure - Departure Disposition: 01 Home, Self Care Clinical Impression: Sinusitis Left otitis media Qualifiers: Otitis media type: suppurative Chronicity: acute Recurrence: recurrent Spontaneous tympanic membrane rupture: without spontaneous rupture Qualified Code(s): H66.005 - Acute suppurative otitis media without spontaneous rupture of ear drum, recurrent, left ear Condition: Stable Instructions: ED Otitis Media Acute Adult, ED Sinusitis Abx Tx Follow-Up: IDALMIS RAM MD [Primary Care Provider] - Prescriptions: Cefdinir 300 mg PO BID #20 capsule
== END 2019-03-12 11:52 | disposition home or self-care (01) ==
LOC: ED 09:45
DX: H66.005 Acute suppurative otitis media without spontaneous rupture of ear drum, recurrent, left ear (principal); J32.9 Chronic sinusitis, unspecified
CPT/HCPCS: 99283; A9270

== ENCOUNTER 2019-07-05 14:05 | Emergency (ER) | payer OTHER ==
[2019-07-05 14:38] LABS: BILIRUBIN,URINE NEGATIVE (NEGATIVE); GLUCOSE, URINE (UA) NEGATIVE (NEGATIVE); KETONES,URINE (UA) NEGATIVE (NEGATIVE); LEUKOCYTE ESTERASE, URINE NEGATIVE (NEGATIVE); NITRITE,URINE NEGATIVE (NEGATIVE); OCCULT BLOOD,URINE NEGATIVE (NEGATIVE); PROTEIN,URINE NEGATIVE (NEGATIVE); UROBILINOGEN,URINE 0.2 (NORMAL) E.U./dL (NORMAL)
[2019-07-05 14:40] LABS: CLARITY,URINE CLEAR (CLEAR)
[2019-07-05 14:43] LABS: HCG UR QUAL NEGATIVE
--- NOTE | 2019-07-05 15:00 | ED Physician Documentation ---
History of Present Illness - Stated complaint Stated Complaint: FEMALE - Chief complaint Chief Complaint: UTI - Additonal information Additional information: This is a 33-year-old female who presents with dysuria. Patient has had ~5 days of symptoms, she states that she began having some mild burning with urination. She also had some slight spotting but then did not get her period. She says she has some very mild left-sided lower flank pain as well. No fever, no nausea or vomiting. No abnormal vaginal discharge. 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 HEENT: None Psych: Anxiety Musculoskeletal: None Derm: None - Past Surgical History Past Surgical History: No - Present Medications Home Medications: Ambulatory Orders Medication Instructions Recorded Confirmed RX: Levothyroxine Sodium 135 mcg PO DAILY 05/03/14 03/12/19 [id number]/FA/Omega3/Dha/Fish Oil 0 mg PO DAILY 11/05/18 03/12/19 [ Gummies] RX: Ibuprofen 400 mg PO TID 12/01/18 03/12/19 Acetaminophen [Tylenol] 325 mg PO BID 03/12/19 03/12/19 RX: Cefdinir 300 mg PO BID #20 capsule 03/12/19 - Allergies Allergies/Adverse Reactions: Allergies Allergy/AdvReac Type Severity Reaction Status Date / Time cefaclor [From Ceclor] AdvReac Intermediate Rash Verified 03/12/19 09:55 Penicillins AdvReac Intermediate Rash Verified 03/12/19 09:55 - Social History Does the pt smoke?: No Smoking Status: Never smoker Does the pt drink ETOH?: No Does the pt have substance abuse?: No - Immunizations Immunizations are current?: Yes - POLST Patient has POLST: No PD ED PE NORMAL - Vitals Vital signs reviewed: Yes - General General: Alert and oriented X 3, No acute distress - HEENT HEENT: PERRL - Neck Neck: Supple, no meningeal sign - Cardiac Cardiac: RRR, No murmur - Respiratory Respiratory: Clear bilaterally - Abdomen Abdomen: Soft, Non tender, Non distended - Derm Derm: Warm and dry - Extremities Extremities: No deformity - Neuro Neuro: Alert and oriented X 3 - Psych Psych: Normal mood, Normal affect Results - Vitals Vitals: Vital Signs - 24 hr 07/05/19 07/05/19 14:23 15:37 Temperature 36.5 C 37.2 C Heart Rate 62 67 Respiratory 14 17 Rate Blood Pressure 116/75 131/71 H O2 Saturation 98 98 Oxygen O2 Source Room air - Labs Labs: Laboratory Tests 07/05/19 14:30 Urine Color YELLOW Urine Clarity CLEAR Urine pH 7.0 Ur Specific [place] 1.015 Urine Protein NEGATIVE Urine Glucose (UA) NEGATIVE Urine Ketones NEGATIVE Urine Occult Blood NEGATIVE Urine Nitrite NEGATIVE Urine Bilirubin NEGATIVE Urine Urobilinogen 0.2 (NORMAL) Ur Leukocyte Esterase NEGATIVE Ur Microscopic Review NOT INDICATED Urine Culture Comments NOT INDICATED Urine HCG, Qual NEGATIVE PD MEDICAL DECISION MAKING - ED course Complexity details: considered differential (UTI, pyelonephritis, STI, abdominal cramping, nephrolithiasis, ovarian cyst) ED course: Pt presents with dysuria and mild lower abdominal discomfort. Her abdominal exam is benign. UA is negative for infection. I discussed this result and that we can perform labs and/or a pelvic exam for further evaluation of her symptoms. She declines, as her symptoms are very mild and she will be able to follow closely with her PCP. She knows that she can return to the ED at any time for further workup, and understands that a UA alone is a limited work up Her vital signs are unremarkable and her abdomen remains benign, I highly doubt acute abdominal pathology. Return precuations discussed and patient was discharged. Departure - Departure Disposition: 01 Home, Self Care Clinical Impression: Dysuria Condition: Good Instructions: ED Dysuria Uncertain Cause Follow-Up: IDALMIS RAM MD [Primary Care Provider] - Comments: You were seen today for some abdominal discomfort as well as pain with urination. I do not see signs of infection on your urine test. Please follow- up with your primary care provider. If you have worsening symptoms such as vomiting, fever, or worsening abdominal pain, please return to the emergency department. Discharge Date/Time: 07/05/19 15:37
[2019-07-05 15:39] VITALS: BP 131/71
== END 2019-07-05 15:37 | disposition home or self-care (01) ==
LOC: ED 14:05
DX: R30.0 Dysuria (principal)
CPT/HCPCS: 81001; 81003; 81025; 87086; 99282; 99283

== ENCOUNTER 2019-09-18 11:09 | Emergency (ER) | payer OTHER ==
[2019-09-18 11:22] VITALS: BP 122/70
--- NOTE | 2019-09-18 12:08 | ED Physician Documentation ---
PD HPI URI - Stated complaint Stated Complaint: SINUS PRESSURE/EAR PX - Chief complaint Chief Complaint: Resp - History obtained from History obtained from: Patient - History of Present Illness Timing - onset: Other (Sick for a week with cough, runny nose, now for the last few days has had left-sided sinus pain, bilateral ear pressure, and low-grade fever.) Associated symptoms: No: Productive cough, Chest pain Contributing factors: Sick contact (Her daughter is sick with URI) Review of Systems Constitutional: reports: Fever, Chills, Fatigue Ears: reports: Ear pain. 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 : None HEENT: None Psych: Anxiety Musculoskeletal: None Derm: None - Past Surgical History Past Surgical History: No - Present Medications Home Medications: Ambulatory Orders Medication Instructions Recorded Confirmed Levothyroxine Sodium 135 mcg PO DAILY 05/03/14 03/12/19 Zrb068/FA/Omega3/Dha/Fish Oil 0 mg PO DAILY 11/05/18 03/12/19 [ Gummies] Ibuprofen 400 mg PO TID 12/01/18 03/12/19 Acetaminophen [Tylenol] 325 mg PO BID 03/12/19 03/12/19 Azithromycin [Zithromax] 1 tab PO DAILY #6 tablet 09/18/19 Cetirizine [ZyrTEC] 10 mg PO ONCE 09/18/19 09/18/19 Mometasone Furoate [Nasonex] 1 spray NS BID #1 spray.pump 09/18/19 - Allergies Allergies/Adverse Reactions: Allergies Allergy/AdvReac Type Severity Reaction Status Date / Time cefaclor [From Ceclor] AdvReac Intermediate Rash Verified 09/18/19 11:22 Penicillins AdvReac Intermediate Rash Verified 09/18/19 11:22 - Social History Does the pt smoke?: No Smoking Status: Never smoker Does the pt drink ETOH?: No Does the pt have substance abuse?: No - Immunizations Immunizations are current?: Yes - POLST Patient has POLST: No PD ED PE NORMAL - Vitals Vital signs reviewed: Yes - General General: Alert and oriented X 3, No acute distress - HEENT HEENT: Other (Both TMs have significant areas of sclerosis, she has serous otitis on the right and retracted TM on the left. There is no otitis media. She does have moderate left maxillary sinus tenderness. The oropharynx is normal) - Neck Neck: Supple, no meningeal sign, No bony TTP - Neuro Neuro: Alert and oriented X 3, Normal speech Results - Vitals Vitals: Vital Signs - 24 hr 09/18/19 11:21 Temperature 36.8 C Heart Rate 72 Respiratory 20 Rate Blood Pressure 122/70 O2 Saturation 99 Oxygen O2 Source Room air PD MEDICAL DECISION MAKING - ED course ED course: Given the time course and double sickening she does merit IDSA criteria for antibiotic therapy. Note penicillin/amoxicillin is not used given her allergy to same. Departure - Departure Disposition: 01 Home, Self Care Clinical Impression: Sinusitis Condition: Good Record reviewed to determine appropriate education?: Yes Instructions: ED Sinusitis Abx Tx Prescriptions: Azithromycin [Zithromax] 1 tab PO DAILY #6 tablet Mometasone Furoate [Nasonex] 1 spray NS BID #1 spray.pump Comments: Recheck with your doctor in a week, return for new or worsening symptoms. As discussed do not take decongestants since you're breast-feeding.
== END 2019-09-18 12:10 | disposition home or self-care (01) ==
LOC: ED 11:09
DX: J01.00 Acute maxillary sinusitis, unspecified (principal)
CPT/HCPCS: 99282; 99283

== ENCOUNTER 2020-01-02 18:18 | Emergency (ER) | payer OTHER ==
[2020-01-02] MEDS ORDERED: KETOROLAC 60 MG/2 ML VIAL IM STA (20:16)
--- NOTE | 2020-01-02 20:51 | XRAY Report ---
Reason: fall, low back pain. history of L3 fracture Procedure Date: 01/02/2020 Accession Number: [id number] / [id number] Procedure: XR - Lumbar Spine 2 View CPT Code: Final Report FULL RESULT: EXAM: LUMBOSACRAL SPINE RADIOGRAPHY EXAM DATE: 01/02/2020 08:29 PM. CLINICAL HISTORY: Fall, low back pain. history of L3 fracture. COMPARISONS: None. TECHNIQUE: 2 views. FINDINGS: Alignment: Within normal limits. No spondylolisthesis or scoliosis. Bones: Five [id number] lumbar vertebral bodies are present. No acute fractures or suspicious bone lesions. Disks: Disk heights are maintained. Facets: Unremarkable Sacroiliac Joints: Unremarkable. Soft Tissues: The visualized bowel gas pattern is unremarkable. IMPRESSION: No radiographic evidence for acute disease. If pain persists, in the setting of trauma consider CT. RADIA
--- NOTE | 2020-01-02 21:00 | ED Physician Documentation ---
History of Present Illness - Stated complaint Stated Complaint: BACK PX-FALL - Chief complaint Chief Complaint: Trauma Ch/Bk - History obtained from History obtained from: Patient - History of Present Illness Timing: Today Pain level max: 7 Pain level now: 6 - Additonal information Additional information: 34-year-old female presents to the emergency department after a fall down the stairs earlier today. Gradually developed low back pain as well as hip, ankle and wrist pain. Did not strike her head. No loss of consciousness. No vomiting. No loss of bowel or bladder control. No numbness or tingling. Denies any possibility of . Is not breast-feeding. She has a history of a L3 fracture, sounds like a transverse process fracture. She just wanted to be evaluated to ensure there is not another fracture. 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 HEENT: None Psych: Anxiety Musculoskeletal: None Derm: None - Past Surgical History Past Surgical History: No - Present Medications Home Medications: Ambulatory Orders Medication Instructions Recorded Confirmed Levothyroxine Sodium 135 mcg PO DAILY 05/03/14 03/12/19 Pnv No.103/Folic/Om3s/Fish Oil 0 mg PO DAILY 11/05/18 03/12/19 [ Gummies] Ibuprofen 400 mg PO TID 12/01/18 03/12/19 Acetaminophen [Tylenol] 325 mg PO BID 03/12/19 03/12/19 Azithromycin [Zithromax] 1 tab PO DAILY #6 tablet 09/18/19 Cetirizine [ZyrTEC] 10 mg PO ONCE 09/18/19 09/18/19 Mometasone Furoate [Nasonex] 1 spray NS BID #1 spray.pump 09/18/19 Cyclobenzaprine [Flexeril] 10 mg PO TID PRN #20 tablet 01/02/20 Meloxicam [Mobic] 15 mg PO DAILY PRN #20 tablet 01/02/20 - Allergies Allergies/Adverse Reactions: Allergies Allergy/AdvReac Type Severity Reaction Status Date / Time cefaclor [From Ceclor] AdvReac Intermediate Rash Verified 01/02/20 18:20 Penicillins AdvReac Intermediate Rash Verified 01/02/20 18:20 - Social History Does the pt smoke?: No Smoking Status: Never smoker Does the pt drink ETOH?: Yes Does the pt have substance abuse?: No - Immunizations Immunizations are current?: Yes - POLST Patient has POLST: No PD ED PE NORMAL - Vitals Vital signs reviewed: Yes - General General: Alert and oriented X 3, No acute distress - HEENT HEENT: Atraumatic, PERRL, Moist mucous membranes - Neck Neck: Supple, no meningeal sign, No bony TTP - Cardiac Cardiac: RRR - Respiratory Respiratory: No respiratory distress, Clear bilaterally - Abdomen Abdomen: Soft, Non tender, Non distended - Back Back: No spinal TTP, Other (No midline tenderness to palpation. Mild spasm bilaterally) - Derm Derm: Warm and dry - Extremities Extremities: No edema, Other (Normal bilateral lower extremity patellar and ankle jerk reflexes. Normal great toe extension bilaterally. no saddle anesthesia) - Neuro Neuro: Alert and oriented X 3, No motor deficit, No sensory deficit - Psych Psych: Normal mood, Normal affect Results - Vitals Vitals: Vital Signs - 24 hr 01/02/20 01/02/20 18:20 21:11 Temperature 36.6 C 36.8 C Heart Rate 70 67 Respiratory 14 18 Rate Blood Pressure 133/89 H 117/78 O2 Saturation 100 99 Oxygen O2 Source Room air - Rads (name of study) L-spine x-ray Radiology: Prelim report reviewed, EMP read contemporaneously, See rad report (No acute abnormality) PD MEDICAL DECISION MAKING - ED course Complexity details: reviewed results, re-evaluated patient, considered differential (No cauda equina, no spinal epidural abscess, no fracture, no aortic dissection or evidence of aneursym rupture), d/w patient ED course: Patient with apparent back spasm. We will place on anti-inflammatories and muscle relaxants for home. Ambulating well. No acute fractures. Patient counseled regarding signs and symptoms for which I believe and urgent re- evaluation would be necessary. Patient with good understanding of and agreement to plan and is comfortable going home at this time This document was made in part using voice recognition software. While efforts are made to proofread this document, sound alike and grammatical errors may occur. Departure - Departure Disposition: 01 Home, Self Care Clinical Impression: Back pain Qualifiers: Back pain location: low back pain Chronicity: acute Back pain laterality: bilateral Sciatica presence: without sciatica Qualified Code(s): M54.5 - Low back pain Back strain Qualifiers: Encounter type: initial encounter Qualified Code(s): S39.012A - Strain of muscle, fascia and tendon of lower back, initial encounter Condition: Good Instructions: ED Low Back Pain Injury, ED Sprain Strain Lumbar Follow-Up: IDALMIS RAM MD [Primary Care Provider] - Within 1 week Prescriptions: Cyclobenzaprine [Flexeril] 10 mg PO TID PRN #20 tablet PRN Reason: Spasms Meloxicam [Mobic] 15 mg PO DAILY PRN #20 tablet PRN Reason: pain Comments: Use the medication as prescribed. Return if you worsen. Follow-up with your doctor for further care. Discharge Date/Time: 01/02/20 21:12
[2020-01-02 23:05] VITALS: BP 117/78
== END 2020-01-02 21:12 | disposition home or self-care (01) ==
LOC: ED 18:18
DX: S39.012A Strain of muscle, fascia and tendon of lower back, initial encounter (principal); W10.9XXA Fall (on) (from) unspecified stairs and steps, initial encounter; Z87.81 Personal history of (healed) traumatic fracture
CPT/HCPCS: 72100; 96372; 99283; 99284

== ENCOUNTER 2020-01-12 11:13 | Emergency (ER) | payer OTHER ==
[2020-01-12 11:42] LABS: RAPID STREP SCREEN POSITIVE (Negative)
--- NOTE | 2020-01-12 12:46 | ED Physician Documentation ---
PD HPI HEADACHE - Stated complaint Stated Complaint: SORE THROAT - Chief complaint Chief Complaint: Heent - History obtained from History obtained from: Patient (2 days of sore throat which became intolerable last night with some subjective fevers and body aches. 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 HEENT: None Psych: Anxiety Musculoskeletal: None Derm: None - Past Surgical History Past Surgical History: No - Present Medications Home Medications: Ambulatory Orders Medication Instructions Recorded Confirmed Levothyroxine Sodium 135 mcg PO DAILY 05/03/14 03/12/19 Pnv No.103/Folic/Om3s/Fish Oil 0 mg PO DAILY 11/05/18 03/12/19 [ Gummies] Ibuprofen 400 mg PO TID 12/01/18 03/12/19 Acetaminophen [Tylenol] 325 mg PO BID 03/12/19 03/12/19 Azithromycin [Zithromax] 1 tab PO DAILY #6 tablet 09/18/19 Cetirizine [ZyrTEC] 10 mg PO ONCE 09/18/19 09/18/19 Mometasone Furoate [Nasonex] 1 spray NS BID #1 spray.pump 09/18/19 Cyclobenzaprine [Flexeril] 10 mg PO TID PRN #20 tablet 01/02/20 Meloxicam [Mobic] 15 mg PO DAILY PRN #20 tablet 01/02/20 Azithromycin [Zithromax] 1 tab PO DAILY #6 tablet 01/12/20 Hydrocodone/Acetaminophen 1 - 2 each PO Q6H PRN #10 tablet 01/12/20 [Hydrocodon-Acetaminophen 5-325] - Allergies Allergies/Adverse Reactions: Allergies Allergy/AdvReac Type Severity Reaction Status Date / Time cefaclor [From Ceclor] AdvReac Intermediate Rash Verified 01/02/20 18:20 Penicillins AdvReac Intermediate Rash Verified 01/02/20 18:20 - Social History Does the pt smoke?: No Smoking Status: Never smoker Does the pt drink ETOH?: Yes ETOH Use: Wine Does the pt have substance abuse?: No - Immunizations Immunizations are current?: Yes - POLST Patient has POLST: No PD ED PE NORMAL - Vitals Vital signs reviewed: Yes - General General: Alert and oriented X 3, No acute distress - HEENT HEENT: PERRL, EOMI, Other (Red swollen tonsils without exudates) - Neck Neck: Supple, no meningeal sign - Derm Derm: Normal color, Warm and dry - Neuro Neuro: Alert and oriented X 3, Normal speech Results - Vitals Vitals: Vital Signs - 24 hr 01/12/20 11:19 Temperature 36.9 C Heart Rate 97 Respiratory 16 Rate Blood Pressure 132/80 H O2 Saturation 100 Oxygen O2 Source Room air - Labs Labs: Laboratory Tests 01/12/20 11:19 Group A Strep Rapid POSITIVE H Departure - Departure Disposition: Home, Self Care Clinical Impression: Strep throat Condition: Good Record reviewed to determine appropriate education?: Yes Instructions: ED Strep Pharyngitis Conf Prescriptions: Azithromycin [Zithromax] 1 tab PO DAILY #6 tablet Hydrocodone/Acetaminophen [Hydrocodon-Acetaminophen 5-325] 1 - 2 each PO Q6H PRN #10 tablet PRN Reason: pain Comments: Recheck with your doctor on Thursday if not better, return for new or worsening symptoms. Forms: Activity restrictions
[2020-01-12 12:53] VITALS: BP 119/67
== END 2020-01-12 13:25 | disposition home or self-care (01) ==
LOC: ED 11:13
DX: J02.0 Streptococcal pharyngitis (principal)
CPT/HCPCS: 87430; 99283; 99284

== ENCOUNTER 2020-01-15 10:48 | Emergency (ER) | payer OTHER ==
[2020-01-15 11:08] VITALS: BP 115/77
[2020-01-15] MEDS ORDERED: DEXAMETHASONE 10 MG/ML VIAL PO STA (11:20)
[2020-01-15] MEDS ORDERED: CHERRY SYRUP 10 ML UDC PO ONE (11:20)
--- NOTE | 2020-01-15 11:23 | ED Physician Documentation ---
PD HPI HEENT - Stated complaint Stated Complaint: SORE THROAT - Chief complaint Chief Complaint: Heent - History obtained from History obtained from: Patient - History of Present Illness Timing - onset: How many days ago (10) Timing - duration: Days (10) Timing - details: Gradual onset, Still present Location: Left ear, Sinuses, Throat Improves: Medication Worsens: Swalllowing Associated symptoms: Fever, Congestion, Facial swelling, Headache, Cough Similar symptoms before: Diagnosis (strep) Recently seen: Emergency Dept - Additional information Additional information: 34-year-old female has had a number of ear nose and throat infections throughout her life has developed a sore throat and has been diagnosed with strep here in the emergency department 4 days ago. She is allergic to penicillin and she was started on a azithromycin. She does not feel that this helped at all and she is having some increased pain in her left ear. Review of Systems Constitutional: reports: Fever, Myalgias, Fatigue Eyes: denies: Decreased vision Ears: reports: Ear pain Nose: reports: Rhinorrhea / runny nose, Congestion Throat: reports: Sore throat Cardiac: denies: Chest pain / pressure, Palpitations Respiratory: reports: Cough. 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 HEENT: None Psych: Anxiety Musculoskeletal: None Derm: None - Past Surgical History Past Surgical History: No - Present Medications Home Medications: Ambulatory Orders Medication Instructions Recorded Confirmed Levothyroxine Sodium 135 mcg PO DAILY 05/03/14 03/12/19 Pnv No.103/Folic/Om3s/Fish Oil 0 mg PO DAILY 11/05/18 03/12/19 [ Gummies] Ibuprofen 400 mg PO TID 12/01/18 03/12/19 Acetaminophen [Tylenol] 325 mg PO BID 03/12/19 03/12/19 Azithromycin [Zithromax] 1 tab PO DAILY #6 tablet 09/18/19 Cetirizine [ZyrTEC] 10 mg PO ONCE 09/18/19 09/18/19 Mometasone Furoate [Nasonex] 1 spray NS BID #1 spray.pump 09/18/19 Cyclobenzaprine [Flexeril] 10 mg PO TID PRN #20 tablet 01/02/20 Meloxicam [Mobic] 15 mg PO DAILY PRN #20 tablet 01/02/20 Azithromycin [Zithromax] 1 tab PO DAILY #6 tablet 01/12/20 Hydrocodone/Acetaminophen 1 - 2 each PO Q6H PRN #10 tablet 01/12/20 [Hydrocodon-Acetaminophen 5-325] Cefdinir 300 mg PO BID #20 capsule 01/15/20 - Allergies Allergies/Adverse Reactions: Allergies Allergy/AdvReac Type Severity Reaction Status Date / Time cefaclor [From Ceclor] AdvReac Intermediate Rash Verified 01/15/20 10:54 Penicillins AdvReac Intermediate Rash Verified 01/15/20 10:54 - Social History Does the pt smoke?: No Smoking Status: Never smoker Does the pt drink ETOH?: Yes ETOH Use: Wine Does the pt have substance abuse?: No - Immunizations Immunizations are current?: Yes - POLST Patient has POLST: No PD ED PE NORMAL - Vitals Vital signs reviewed: Yes (Normal) - General General: Alert and oriented X 3, No acute distress, Well developed/nourished - HEENT HEENT: Atraumatic, PERRL, EOMI, Other (The left TM shows marked tympanosclerosis and some mild erythema. The right TM shows the tympanosclerosis without inflammation the pharynx is inflamed in general more on the right than the left.) - Neck Neck: Supple, no meningeal sign, No bony TTP - Cardiac Cardiac: RRR, No murmur, No gallop - Respiratory Respiratory: No respiratory distress, Clear bilaterally - Abdomen Abdomen: Soft, Non tender - Derm Derm: Normal color, Warm and dry, No rash - Extremities Extremities: No deformity, No edema - Neuro Neuro: Alert and oriented X 3, edge molder 2-12 intact, No motor deficit, No sensory deficit, Normal speech Eye Opening: Spontaneous Motor: Obeys Commands Verbal: Oriented GCS Score: 15 - Psych Psych: Normal mood, Normal affect Results - Vitals Vitals: Vital Signs - 24 hr 01/15/20 01/15/20 10:54 11:07 Temperature 37 C 37 C Heart Rate 74 75 Respiratory 16 16 Rate Blood Pressure 118/74 115/77 O2 Saturation 100 100 Oxygen O2 Source Room air PD MEDICAL DECISION MAKING - ED course Complexity details: considered differential, d/w patient ED course: 34-year-old female fell feeling management of strep with a azithromycin. We will change her to Cedinir and we have given her a dose of dexamethasone here in the emergency department. Departure - Departure Disposition: 01 Home, Self Care Clinical Impression: Strep throat Condition: Stable Instructions: ED Strep Pharyngitis Conf Follow-Up: IDALMIS RAM MD [Primary Care Provider] - Prescriptions: Cefdinir 300 mg PO BID #20 capsule Forms: Activity restrictions
== END 2020-01-15 11:33 | disposition home or self-care (01) ==
LOC: ED 10:48
DX: J02.0 Streptococcal pharyngitis (principal)
CPT/HCPCS: 99282; 99284; A9270